=== PATIENT | female | born 1985 | race Caucasian/White ===

== ENCOUNTER 2020-07-15 12:49 | Inpatient (IN) | payer SELFPAY ==
[2020-07-15] MEDS ORDERED: HYDROcodone/Acetaminophen 5/325 mg Tablet PO PRN (15:39)
[2020-07-15] MEDS ORDERED: Senokot S 8.6-50 MG TAB PO PRN (15:40)
[2020-07-15] MEDS ORDERED: Ondansetron PF 4 MG/2 ML Vial IVP PRN (15:40)
[2020-07-15] MEDS ORDERED: Acetaminophen 325 MG TAB PO PRN (15:40)
[2020-07-15] MEDS ORDERED: Ondansetron ODT 4 MG TAB PO PRN (15:40)
[2020-07-15] MEDS ORDERED: Acetaminophen 650 MG Suppository PR PRN (15:40)
--- NOTE | 2020-07-15 16:13 | PDOC.HHP ---
Hospitalist HPI - History of Present Illness History of Present Illness: ADMISSION DATE: 07/15/2020 TIME OF ASSESSMENT: 1500 REASON FOR ADMISSION: Right inner thigh cellulitis HPI: Patient states she was wrapping gifts in the attic when she suddenly started itching in the right inner thigh region. States later that evening she noted a demarcated area of erythema/swelling. She did not note any broken skin or wound. She woke up the next morning and went shopping, later in the day noted the area had enlarged, she humberto a border around it and presented to the ED where she was given a dose of IV clindamycin and then sent home with a prescription to continue Clinda. There was an attempted I&D but patient states there was no discharge. Patient took one dose that evening and in the morning noted further worsening prompting her to seek medical attention again. She was given another IV antibiotics and sent home on cefdinir. The patient did not take the p.o. cefdinir before she began to notice worsening of the erythema and swelling extending out further despite the recent course of IV antibiotics. This prompted her to return and today received IV vancomycin then transferred here for further IV antibiotics. States when she walks she has pain that extends down her entire leg. Reports having a low-grade temp of 99 on evening. Denies any chills or sweats. Complains of mild nausea present but has not had any vomiting. No abdominal discomfort and no changes with her stools. No urinary symptoms. Denies chest pain palpitations or shortness of breath. No recent cough or hemoptysis. All other review of systems are negative. Given Toradol 30 mg IV and Hydrocodone for pain. Started on IV antibiotics with Vancomycin 1 g (at 11:30AM). Labs done at outside ED showed a white count of 7.5, hemoglobin 12.5, hematocrit 35.3, platelets 227. Sodium 140, potassium 3.4, glucose 115, BUN 13, creatinine 0.5, anion gap 19. Rapid Covid test was negative. PAST MEDICAL HISTORY: 1. Anxiety 2. Tachycardia, associated with anxiety (cardiac work-up negative) PAST SURGICAL HISTORY: SOCIAL HISTORY: Patient reports drinking socially, denies any tobacco use or drug use. FAMILY HISTORY: Noncontributory ALLERGIES: Prednisone causes moderate hives CURRENT MEDICATIONS: 1. Propanolol 60 mg p.o. daily 2. Venlafaxine 150 mg p.o. daily - Exam General Appearance: NAD, awake alert General - other findings: VS temp 98.4, HR 71, RR 20, BP 120/71 Eye: PERRL, anicteric sclera ENT: normocephalic atraumatic Neck: supple, no lymphadenopathy Heart: RRR, no murmur, no gallops, no rubs, normal peripheral pulses Respiratory: CTAB, no wheezes, no rales, no ronchi, normal chest expansion Gastrointestinal: soft, non-tender, non-distended, normal bowel sounds Extremities: no edema Skin: normal turgor Skin - other findings: Rt inner thigh w/area of erythema w/ central purpura nonblanching,appx 8 cm Neurological: cranial nerve grossly intact, normal sensation to touch, no weakness Musculoskeletal: normal tone, normal strength, no muscle wasting Psychiatric: normal affect, normal behavior, A&O x 3 Hospitalist H&P A/P - Problem (1) Cellulitis of right thigh Code(s): L03.115 - CELLULITIS OF RIGHT LOWER LIMB Status: Acute Assessment and Plan: Continue IV Vancomycin Zosyn ordered Florastor ordered Continue to monitor for worsening/enlarging erythema Consult placed to Dr. Burnett (2) Right leg pain Code(s): M79.604 - PAIN IN RIGHT LEG Status: Acute Assessment and Plan: Marion ordered (3) Nausea Code(s): R11.0 - NAUSEA Status: Acute Assessment and Plan: Zofran ordered Likely due to not eating since yesterday Regular diet ordered (4) Anxiety Code(s): F41.9 - ANXIETY DISORDER, UNSPECIFIED Status: Chronic Assessment and Plan: Stable Resume Venlafaxine (5) Tachycardia Code(s): R00.0 - TACHYCARDIA, UNSPECIFIED Status: Chronic Assessment and Plan: stable and controlled with Propanol which has been restarted - Plan Plan: GI Prophylaxis with Famotidine DVT Prophylaxis: Mechanical SCDs, patient is ambulatory CODE STATUS FULL Case discussed with Dr. Dupont who agrees with plan as above.
--- NOTE | 2020-07-15 17:15 | CON ---
DATE OF CONSULTATION: 07/15/2020 REASON FOR CONSULTATION: Cellulitis, right thigh. HISTORY OF PRESENT ILLNESS: A 35-year-old with history of anxiety, who has developed inflammatory process in the right medial thigh. This started with an area of itching in the right inner thigh region after wrapping gifts in the attic. The next evening, she noticed demarcated area of erythema and swelling. No insects were found. She presented to [facility] [place] [facility] and she was given a dose of IV clindamycin and oral clindamycin persisted with an inflammatory changes. Before she was discharged from [facility] [place], I and D was attempted, but no discharge or cultures were submitted. No headaches. No visual symptoms, sore throat, odynophagia, or dysphagia. No cough or sputum production. No back pain. No abdominal pain. She has pain in the right groin and no joint symptoms. MEDICAL HISTORY: Anxiety, tachycardia with a negative cardiac workup. PAST SURGICAL HISTORY: . SOCIAL HISTORY: Never smoker. . FAMILY HISTORY: Noncontributory. ALLERGIES: PREDNISONE WITH HIVES. MEDICATIONS: Propranolol and venlafaxine. PHYSICAL EXAMINATION: VITAL SIGNS: Temperature 98.4, saturating 100% on room air, pulse 71, respiratory rate 20. SKIN: Shows area of a circumferential erythema in the right medial thigh. There is moderate to marked tenderness on palpation. At the center of this, there is a little linear cut, which was probably the I and D attempt done at [facility] [place]. Not much induration. The rim of erythema measures about 15 to 20 cm round- shaped. No areas of skin necrosis or blistering noted. There is an area of lymphadenitis in the right groin. HEENT: Ocular movements conjugate. HEENT exam, otherwise normal. NECK: Supple. LUNGS: Symmetric. Clear breath sounds. HEART: S1 and S2, regular rate. ABDOMEN: Soft, not distended or tender. No ascites. No bladder distention. EXTREMITIES: No joint inflammatory activity. Moves extremities equally. NEURO: Otherwise nonfocal. LABORATORY DATA: Labs are pending. I have submitted a swab for culture from the center of the lesion. ASSESSMENT AND PLAN: Inflammatory process, cellulitis following a scratch to the right inner thigh. No insects were seen. The most likely scenario is staphylococcal infection either methicillin-susceptible or methicillin resistant Staphylococcus aureus. Streptococci are less likely, gram-negative rods less likely. Continue vancomycin and add cefepime. Discontinue Zosyn. Add clindamycin. She does not have features to indicate necrotizing process. It may form into an abscess and may need surgical drainage depending on progress. Job ID: [id number] [facility]
[2020-07-15] MEDS: Sodium Chloride 0.9% 1,000 ML IV SCH (17:54)
[2020-07-15] MEDS ORDERED: Piperacillin/Tazobactam 3.375 GM in Sodium Chloride 0.9% 100 ML IVPB SCH (18:00)
[2020-07-15] MEDS: Vancomycin 1.5 GRAM/300 ML BAG 1.5 GM in Premix Bag 1 BAG IVPB SCH (19:45)
[2020-07-15] MEDS ORDERED: Vancomycin HCl 1.25 GM in Sodium Chloride 0.9% 250 ML 250 ML IVPB SCH (21:00)
[2020-07-15] MEDS: Famotidine 20 MG TAB PO SCH (21:48)
[2020-07-15] MEDS: Cefepime 2 GM in Sodium Chloride 0.9% 100 ML IVPB SCH (21:48)
[2020-07-15] MEDS: Clindamycin/D5W 900 MG in Premix Bag 1 BAG IVPB SCH (23:01)
[2020-07-16] MEDS ORDERED: Melatonin 3 MG TAB PO PRN (01:43)
[2020-07-16] MEDS: Sodium Chloride 0.9% 1,000 ML IV SCH (02:10)
[2020-07-16] MEDS: Vancomycin 1.5 GRAM/300 ML BAG 1.5 GM in Premix Bag 1 BAG IVPB SCH ×2 (04:19→15:33)
[2020-07-16] MEDS: Clindamycin/D5W 900 MG in Premix Bag 1 BAG IVPB SCH (06:09)
[2020-07-16 06:14] LABS: #Eosinphils 0.3 thou/uL (0.0-0.7); #Lymphocytes 1.8 thou/uL (1.20-3.40); #Monocytes 0.7 thou/uL (0.11-0.59); #Neutrophils 2.7 thou/uL (1.40-6.50); %Basophils 0.7 % (0.0-1.0); %Eosinophils 4.9 % (0.0-10.0); %Lymphocytes 32.9 % (21.0-51.0); %Monocytes 13.2 % (0.0-10.0); %Neutrophils 48.4 % (42.0-75.0); Hemoglobin 11.1 g/dL (12.0-16.0); Mean Corpuscular HGB CONC 33.7 g/dL (32.0-36.0); Mean Corpuscular Hemoglobin 30.6 pg (27.0-31.0); Mean Corpuscular Volume 90.6 fL (78.0-98.0); Platelet Count 188 thou/uL (130-400); RBC Distribution Width 12.1 % (11.5-14.5); Red Blood Cell (RBC) Count 3.64 mill/uL (4.20-5.40); White Blood Cell (WBC) Count 5.6 thou/uL (4.8-10.8)
[2020-07-16 06:31] LABS: Anion Gap 10 mmol/L (10-20); BUN (Urea Nitrogen) 7 mg/dL (7.0-18.7); Calc. Creatinine Clearance 167 mL/min (70-130); Calcium 7.6 mg/dL (7.8-10.44); Carbon Dioxide 24 mmol/L (22-29); Chloride 111 mmol/L (98-107); Glucose 84 mg/dL (70-105); Potassium 3.9 mmol/L (3.5-5.1); Sodium 141 mmol/L (136-145)
[2020-07-16] MEDS ORDERED: Saccharomyces boulardii 250 MG CAP PO SCH (09:00)
[2020-07-16] MEDS ORDERED: Propranolol HCl LA 60 MG CAP PO SCH (09:00)
[2020-07-16] MEDS ORDERED: Venlafaxine HCl XR 150 MG CAP PO SCH (09:00)
[2020-07-16] MEDS: Famotidine 20 MG TAB PO SCH (09:24)
[2020-07-16] MEDS: Cefepime 2 GM in Sodium Chloride 0.9% 100 ML IVPB SCH (09:27)
[2020-07-16 11:23] LABS: Vancomycin, Trough 17.4 ug/mL
--- NOTE | 2020-07-16 14:53 | PDOC.HOSPP ---
- Subjective Encounter Date: 07/16/20 Encounter Time: 10:30 Subjective: Patient seen for follow-up regarding cellulitis. She reports feeling better. - Objective Vital Signs & Weight: Vital Signs (12 hours) Temp Pulse Resp BP 07/16/20 06:09 97.6 F 66 14 102/72 Weight Weight 175 lb I&O: 07/15/20 07/16/20 07/17/20 06:59 06:59 06:59 Intake Total 1785 Balance 1785 Result Diagrams: 07/16/20 05:58 07/16/20 05:58 Additional Labs: Labs and MAR reviewed by in Hospitalist ROS - Review of Systems Cardiovascular: denies: chest pain, palpitations, orthopnea, paroxysmal noc. dyspnea, edema, light headedness Skin: reports: rash. denies: lesions, tim, bruising - Medication Medications: Active Medications Generic Name Dose Route Start Last Admin Trade Name Freq PRN Reason Stop Dose Admin Acetaminophen 650 mg 07/15/20 15:40 07/15/20 17:55 Acetaminophen 325 Mg Tab PO 650 mg Q4H PRN Administration Headache/Fever/Mild Pain (1-3) Hydrocodone Bitart/Acetaminophen 1 tab 07/15/20 15:39 07/15/20 17:53 Hydrocodone/Acetaminophen 5/325 Mg Tablet PO 1 tab Q4H PRN Administration Moderate Pain (4-5) Famotidine 20 mg 07/15/20 21:00 07/16/20 09:24 Famotidine 20 Mg Tab PO 20 mg BID ANTIONE Administration Sodium Chloride 1,000 mls @ 75 mls/hr 07/15/20 15:45 07/16/20 02:10 Normal Saline 0.9% IV 1,000 mls .[id number] ANTIONE Administration Cefepime HCl 2 gm/ Sodium 100 mls @ 200 mls/hr 07/15/20 21:00 07/16/20 09:27 Chloride IVPB 100 mls Q12HR ANITONE Administration Clindamycin Phosphate/Dextrose 50 mls @ 100 mls/hr 07/15/20 22:00 07/16/20 06:09 900 mg/ Device IVPB 50 mls Q8HR ANTIONE Administration Vancomycin HCl 1.5 gm/ Device 300 mls @ 200 mls/hr 07/15/20 20:00 07/16/20 04:19 IVPB 300 mls 0400,1200,2000 ANTIONE Administration Melatonin 6 mg 07/16/20 01:43 07/16/20 02:07 Melatonin 3 Mg Tab PO 6 mg HS PRN Administration Insomnia Propranolol HCl 60 mg 07/16/20 09:00 07/16/20 09:24 Propranolol Hcl La 60 Mg Cap PO 60 mg DAILY ANTIONE Administration Saccharomyces Boulardii 250 mg 07/16/20 09:00 07/16/20 09:24 Saccharomyces Boulardii 250 Mg Cap PO 250 mg DAILY ANTIONE Administration Venlafaxine HCl 150 mg 07/16/20 09:00 07/16/20 09:24 Venlafaxine Hcl Xr 150 Mg Cap PO 150 mg DAILY ANTIONE Administration - Exam General - other findings: Obese Eye: anicteric sclera ENT: moist mucosa Neck: supple Heart: RRR Respiratory: CTAB Gastrointestinal: soft, non-tender Skin - other findings: Rash as documented Psychiatric: normal affect, normal behavior Hosp A/P - Plan -Assessment/plan (1) Cellulitis of right thigh Code(s): L03.115 - CELLULITIS OF RIGHT LOWER LIMB Status: Acute Assessment and Plan: Continue IV Vancomycin, cefepime and clindamycin. Follow cultures. (2) Right leg pain Code(s): M79.604 - PAIN IN RIGHT LEG Status: Acute Assessment and Plan: As needed pain medications (3) Nausea Code(s): R11.0 - NAUSEA Status: Acute Assessment and Plan: Continue as needed Zofran (4) Anxiety Code(s): F41.9 - ANXIETY DISORDER, UNSPECIFIED Status: Chronic Assessment and Plan: Stable Patient is on venlafaxine (5) Tachycardia Resolved
--- NOTE | 2020-07-16 16:13 | PRG ---
DATE OF SERVICE: 07/16/2020 SUBJECTIVE: Feeling much better. No pain. No fever. No abdominal pain or diarrhea. OBJECTIVE: VITAL SIGNS: Essentially normal. LUNGS: Clear. ABDOMEN: Soft. EXTREMITIES: Right thigh lesion is receded pretty much almost 80% of it. The erythema has resolved, there is no induration at the center and no tenderness and no drainage. LABORATORY DATA: White cell count is 5.6 with a normal differential. ASSESSMENT: Otherwise healthy young female who developed itching and an inflammatory process with spreading cellulitis. The cultures from the swab submitted negative, it is possible that this does not an infectious process, but the allergic-type reaction; for example, an insect bite, but I cannot be sure about that, and I would recommend discharge planning now with Keflex and doxycycline for 7 days. Job ID: [id number]
[2020-07-16 17:12] VITALS: TEMP 98.1
[2020-07-16 18:29] VITALS: BP 97/64
--- NOTE | 2020-07-17 07:14 | PDOC.DS.DS ---
Provider - Provider Date of Admission: 07/15/20 14:27 Date of Discharge: 07/16/20 Admitting Provider: Kiko Dupont MD Consultations: Infectious Disease (Dr. Burnett) Primary Care Physician: Kiko Dupont MD Course - Hospital Course Hospital Course: Discharge diagnosis: 1. Cellulitis of the right thigh Hospital course: Patient is a pleasant 35-year-old lady who was admitted to the hospital on July 23, 2020 for cellulitis of the right upper thigh. She improved with intravenous antibiotics. She has been cleared for discharge on Keflex and doxycycline for 1 week by infectious disease service. Many thanks for allowing me to participate in your patient's care. Please feel free to contact me with any questions or concerns. Discharge destination: Home Total amount of time spent coordinating this discharge: 22 minutes Resuscitation Status: 07/15/20 15:40 Resuscitation Status Routine Co-Sign Provider: Resuscitation Status: FULL: Full Resuscitation - Labs Lab Results: 07/16/20 05:58 07/16/20 05:58 Abnormal Lab Results - Last 48 hrs 07/16/20 05:58: Chloride 111 H, Calcium 7.6 L 07/16/20 05:58: RBC 3.64 L, Hgb 11.1 L, Hct 33.0 L, Monocytes % 13.2 H, Monocytes # 0.7 H Microbiology - Entire Visit 07/15/20 16:30 Skin - Drainage Bacterial Culture - Preliminary - Physical Exam Vitals: Weight Weight 175 lb Physical Exam: The patient was seen and examined on the day of discharge. Please refer to my daily progress note for further details regarding this [id number] encounter. Plan - Discharge Medications Prescriptions: Cephalexin [Keflex] 500 mg PO Q6H #28 cap Doxycycline [Vibramycin] 100 mg PO BID #14 cap Home Medications: Medication Instructions Recorded Confirmed Type Propranolol HCl [Propranolol HCl 1 tab PO DAILY 07/15/20 07/15/20 History ER] Venlafaxine HCl [Venlafaxine HCl 150 mg PO DAILY 07/15/20 07/15/20 History ER] Cephalexin [Keflex] 500 mg PO Q6H #28 cap 07/16/20 Rx Doxycycline [Vibramycin] 100 mg PO BID #14 cap 07/16/20 Rx Allergies: prednisone Allergy (Verified 07/15/20 14:45) - Discharge Instructions Activity:: Activity as Tolerated Nourishment:: Heart Healthy Diet - Follow up Plan Referrals: Kiko Dupont MD [Primary Care Provider] - JEY UGARTE [ Not on Staff] - 3 Days Disposition: HOME
== END 2020-07-16 19:10 | disposition home or self-care (01) | DRG 603 ==
LOC: INTOOBSV 14:27 → OBSVTOIN 14:27 → 3SE 14:27
PROVIDERS: ADMIT Internal Medicine; ATTEND Internal Medicine
DX: L03.115 Cellulitis of right lower limb (principal); F41.9 Anxiety disorder, unspecified; Z20.828 Contact with and (suspected) exposure to other viral communicable diseases; M79.604 Pain in right leg; R00.0 Tachycardia, unspecified; Z88.8 Allergy status to other drugs, medicaments and biological substances
CPT/HCPCS: 36415; 80048; 80202; 85025; 87070; 87205; 96366; 96376; G0378; J0692; J3370; J3490